=== PATIENT | male | born 1990 | race Caucasian/White ===

== ENCOUNTER 2020-09-02 17:36 | Emergency (ER) | payer OTHER, SELFPAY ==
--- NOTE | 2020-09-02 17:43 | ED.DENTAL ---
HPI - Dental/Oral General Chief complaint: Dental/Oral Stated complaint: Tooth Pain Time Seen by Provider: 09/02/20 17:44 Source: patient and RN notes reviewed Mode of arrival: ambulatory Limitations: no limitations History of Present Illness HPI Narrative: 30-year-old male presents to the [facility] with complaint of dental pain. States that he has an appointment with [facility] on 30 September for dental extraction. No facial swelling. Has tried a pain reliever with not a lot of relief. Denies any other symptoms Related Data Home Medications Medication Instructions Recorded Confirmed No Home Medications 09/02/20 09/02/20 Allergies Allergy/AdvReac Type Severity Reaction Status Date / Time No Known Allergies Allergy Mild Verified 09/02/20 17:50 Review of Systems Review of Systems: All systems reviewed & are unremarkable except as noted in HPI and below Constitutional: Constitutional: Reports no additional constitutional complaints, Denies chills, Denies fatigue, Denies fever(s) and Denies weakness Eyes: Eyes: Denies no additional eye complaints ENT: Reports as per HPI Comments: Dental pain bilateral wisdom teeth Cardiovascular: Cardiovascular: Reports no additional cardiovascular complaints Respiratory: Respiratory: Reports no additional respiratory complaints, Denies cough, Denies dyspnea and Denies wheezing Gastrointestinal: Gastrointestinal: Reports no additional gastrointestinal complaints Musculoskeletal: Musculoskeletal: Reports no additional musculoskeletal complaints Neurologic: Reports system reviewed and no additional complaints, except as documented Psychiatric: Psychiatric: Reports no additional psychiatric complaints PMFSH Comments At the time of my signature, I reviewed and agree with the nursing past medical, surgical, social, and family history. There is no relevant family history pertinent to the patient complaint. Exam Const: General: healthy appearing, no acute distress and alert Nutritional Appearance: well nourished Orientation/consciousness: patient oriented x3 HENMT: Head: normal to inspection Face and sinus: normal facial exam Teeth and gingiva: caries and gingiva abnormal with purulent discharge (#17) and diffusely erythematous Teeth image: 1. #17 decayed 2. 32 and 31 decayed with swelling to the gum line. Throat: posterior oropharynx normal Eyes: Pupils: Equal, round and reactive pupils present Neck: Neck: normal visual inspection and no lymphadenopathy Chest: Chest palpation & inspection: normal inspection of the chest Resp: Effort & Inspection: normal respiratory effort and no use of accessory muscles Auscultation: clear to auscultation bilaterally, no crackles, no rales, no rhonchi and no wheezes Cardio: Rate: regular rate Rhythm: regular rhythm : General: Yes no CVA tenderness Male General Exam: Yes normal external exam Testes: Testes normal Skin: General skin exam: normal color Rashes: no rashes Neuro: General: patient oriented x3 and moves all extremities Speech: normal speech Gait exam (Neuro): Normal gait present Extrem: General: normal to inspection Psych: Appearance: grossly normal and well kempt Mental Status: mental status grossly normal Affect: normal affect Attitude: cooperative Thought content: Yes Normal thought content present Course Vital Signs Vital signs: Vital Signs Temperature 97.5 F L 09/02/20 17:44 Pulse Rate 92 09/02/20 17:44 Respiratory Rate 16 09/02/20 17:44 Blood Pressure 139/75 09/02/20 17:44 Pulse Oximetry 100 09/02/20 17:44 Temperature 97.5 F L 09/02/20 17:50 Pulse Rate 92 09/02/20 17:50 Respiratory Rate 16 09/02/20 17:50 Blood Pressure 139/75 09/02/20 17:50 Pulse Oximetry 100 09/02/20 17:50 Reviewed, within defined limits MDM - Dental/Oral MDM Narrative Medical decision making narrative: Discharge instructions reviewed with patient, as well as provided in writ
[2020-09-02 17:44] VITALS: BP 139/75; PULSE 92; RESP 16; TEMP 36.4; O2SAT 100
[2020-09-02 17:50] VITALS: BP 139/75; PULSE 92; RESP 16; TEMP 36.4; O2SAT 100
== END 2020-09-02 18:06 | disposition home or self-care (01) ==
PROVIDERS: Emergency Provider Nurse Practitioner; PCP Family Medicine
DX: K02.9 Dental caries, unspecified (principal); K04.7 Periapical abscess without sinus
CPT/HCPCS: 99213; G0463